=== PATIENT | male | born 1985 | race African-American/Black ===

== ENCOUNTER 2020-08-08 20:09 | Emergency (ER) | payer MEDICAID, OTHER ==
[~2020-08-08] VITALS: Ht 170.2 cm; Wt 69.8 kg
[2020-08-08 20:49] VITALS: BP 115/78
== END 2020-08-08 21:30 | disposition home or self-care (01) ==
LOC: ER 20:09
DX: Z00.00 Encounter for general adult medical examination without abnormal findings (principal)
CPT/HCPCS: 99281